=== PATIENT | female | born 1990 | race Hispanic/Latino ===

== ENCOUNTER 2017-12-13 16:44 | Emergency (ER) | payer OTHER ==
[2017-12-13] MEDS ORDERED: Naloxone 0.4 mg/ml Inj (Adult) ONE (16:49)
[2017-12-13] MEDS ORDERED: Naloxone 0.4 mg/ml Inj (Adult) IVP STA ×2 (16:56)
[2017-12-13 17:14] LABS: BASO # 0.1 K/uL (0.0-0.2); BASO % 1.1 % (0.0-2.0); EOS # 0.1 K/uL (0.0-0.7); EOS % 0.7 % (0.0-4.0); HEMOGLOBIN 13.4 g/dL (12.0-16.0); LYMPH # 2.7 K/uL (1.0-4.3); LYMPH % 34.4 % (20.0-40.0); MEAN CORPUSCULAR HEMOGLOBIN 32.7 pg (27.0-31.0); MEAN CORPUSCULAR HGB CONC 34.4 g/dL (33.0-37.0); MEAN PLATELET VOLUME 8.3 fl (7.2-11.7); MONO # 0.4 K/uL (0.0-0.8); MONO % 4.5 % (0.0-10.0); NEUT # 4.7 K/uL (1.8-7.0); NEUT % 59.3 % (50.0-75.0); RBC 4.1 Mil/uL (3.80-5.20)
[2017-12-13 17:17] LABS: VENOUS BLOOD GAS BASE EXCESS -4.3 mmol/L (0.0-2.0); VENOUS BLOOD GAS PCO2 42 mmHg (40-60); VENOUS BLOOD GAS PO2 61 mm/Hg (30-55); VENOUS BLOOD PH 7.32 (7.32-7.43)
[2017-12-13 17:26] LABS: BLOOD UREA NITROGEN 9 mg/dl (7-17); GFR NON-AFRICAN AMERICAN > 60
--- NOTE | 2017-12-13 18:06 | RAD ---
Date of service: 12/13/2017 HISTORY: possible admission COMPARISON: No prior. FINDINGS: LUNGS: Questionable left lower lobe infiltrate versus nipple shadow. PLEURA: No significant pleural effusion identified, no pneumothorax apparent. CARDIOVASCULAR: Normal. OSSEOUS STRUCTURES: No significant abnormalities. VISUALIZED UPPER ABDOMEN: Normal. OTHER FINDINGS: None. IMPRESSION: Questionable left lower lobe infiltrate versus nipple shadow.
[2017-12-13 18:35] LABS: ACETAMINOPHEN < 10.0 ug/ml (10.0-30.0); SALICYLATE < 1.0 mg/dl
--- NOTE | 2017-12-13 18:51 | ED PDOC ---
HPI: Altered Mental Status Time Seen by Provider: 12/13/17 16:55 Chief Complaint (Nursing): Altered Mental Status Chief Complaint (Provider): Altered Mental Status History Per: Patient History/Exam Limitations: Intoxication Onset/Duration Of Symptoms: Hrs Current Symptoms Are (Timing): Still Present Description Of Symptoms: Difficult To Arouse Exacerbating Factor(s): Alcohol Use Additional Complaint(s): 27 year old female brought to the ED by EMS, unconscious, accompanied by friend. As per friend, they were drinking heavily today when patient became unconscious and therefore 911 was called. Friend denies any drug use, trauma, fall, or any known medical conditions. As per EMS, there were no signs of any drugs on the scene. Patient unable to provide any history. Past Medical History Reviewed: Historical Data, Nursing Documentation, Vital Signs Vital Signs: Last Vital Signs Temp 97.2 F L 12/13/17 17:33 Pulse 74 12/13/17 17:19 Resp 12 12/13/17 17:19 BP 101/68 12/13/17 17:19 Pulse Ox 96 12/13/17 17:19 - Medical History PMH: No Chronic Diseases - Family History Family History: States: No Known Family Hx - Allergies Allergies/Adverse Reactions: Allergies Allergy/AdvReac Type Severity Reaction Status Date / Time Unobtainable Allergy Verified 12/13/17 16:54 Review of Systems Review Of Systems: ROS cannot be obtained secondary to pt's inabilty to answer questions. Physical Exam - Reviewed Nursing Documentation Reviewed: Yes Vital Signs Reviewed: Yes - Physical Exam Head Exam: Positive for: ATRAUMATIC (with no abrasions, hematoma, or evidence of trauma), NORMOCEPHALIC Skin: Positive for: Normal Color, Warm, Dry Eye Exam: Positive for: PERRL ENT: Positive for: Other (Airway is patent) Cardiovascular/Chest: Positive for: Regular Rate, Rhythm. Negative for: Murmur Respiratory: Positive for: Normal Breath Sounds. Negative for: Accessory Muscle Use, Rhonchi, Wheezing, Respiratory Distress Pulses-Radial (L): 2+ Pulses-Radial (R): 2+ Gastrointestinal/Abdominal: Positive for: Normal Exam, Soft. Negative for: Tenderness Extremity: Positive for: Other (No signs of track gaspar, rash, or evidence of trauma). Negative for: Calf Tenderness (or swelling) Neurologic/Psych: Positive for: Other (Unconscious, not arousable to sternal rub, not withdrawing to pain, +alcohol on breath) - Laboratory Results Result Diagrams: 12/13/17 17:00 12/13/17 17:00 - ECG O2 Sat by Pulse Oximetry: 96 (RA) Pulse Ox Interpretation: Normal - Radiology X-Ray: Read By Radiologist (chest x-ray) X-Ray Interpretation: Other (Questionable left lower lobe infiltrate versus nipple shadow) Medical Decision Making Medical Decision Making: Time: 1656 Impression: Work-up for acute intoxication of unknown substance Initial Plan: 2x 0.4 mg Narcan given with no improvement in mental status. Labs sent, including drug screen and alcohol level. Chest x-ray and EKG obtained. IV fluids administered. If no improvement in [address] Head. Pending reassessment. 1846 Patient found to have alcohol > 300. On re-evaluation patient is now awake, able to state her name and the month. When asked what happened today, patient cannot form a full sentence, and is requiring assistance to undress and use the bathroom. Will continue to monitor patient for sobriety. U-tox pending. 20:49 Pt now clinically sober, alert/oriented to person, place and time. PE unremarkable. Pt states she was out drinking heavily today but denies pain. Pt is with her mother and will go home with her mother. Return parameters discussed. Scribe Attestation: Documented by Celine Brantley, acting as a scribe for Dr. Madalyn Obrien MD. Provider Scribe Attestation: All medical record entries made by the Scribe were at my direction and personally dictated by me. I have reviewed the chart and agree that the record accurately reflects my personal performance of the history, physical exam, medical decision making, and the department course for this patient. I have also personally directed, reviewed, and agree with the discharge instructions and disposition. Disposition - Clinical Impression Clinical Impression: Acute alcohol intoxication - Patient ED Disposition Is Patient to be Admitted: No - Disposition Referrals: Non [facility] Provider, [Primary Care Provider] - Disposition: Routine/Home Disposition Time: 20:53 Condition: IMPROVED Additional Instructions: Do not consume drugs or alcohol to excess. Discuss rehabilitation/alcohol cessation with your primary doctor. Return to the emergency department if symptoms worsen or if new symptoms develop. Instructions: Alcohol Abuse and Alcoholism (DC) Forms: [employer] (Pashto) Print Language: YEMENI
[2017-12-13 19:10] LABS: SQUAMOUS EPITHIAL < 1 /hpf (0-5); URINE BACTERIA RARE (<OCC); URINE BILIRUBIN NEGATIVE (NEGATIVE); URINE BLOOD SMALL (NEGATIVE); URINE CLARITY CLEAR (Clear); URINE COLOR COLORLESS (YELLOW); URINE GLUCOSE (UA) NEG (Normal); URINE LEUKOCYTE ESTERASE NEG Leu/uL (Negative); URINE PROTEIN NEGATIVE (NEGATIVE); URINE UROBILINOGEN 0.2-1.0 mg/dL (0.2-1.0)
[2017-12-13] MEDS ORDERED: Sodium Chloride 0.9% 1,000 ML IV STA (19:11)
[2017-12-13 21:01] VITALS: BP 100/61; PULSE 72; RESP 18; TEMP 97.9; O2SAT 97
--- NOTE | 2017-12-14 00:09 | CARD ---
APPROVED REPORT Date of service: 12/13/2017 EKG Measurement Heart [id number] <Conclusion> Normal sinus rhythm Normal ECG
== END 2017-12-13 20:54 | disposition home or self-care (01) ==
LOC: H.ER 16:44 → SUPCPDRO 16:44 → H.ER 20:54
DX: F10.129 Alcohol abuse with intoxication, unspecified (principal)
CPT/HCPCS: 71045; 80048; 80320; 80329; 81003; 81025; 82803; 84703; 85025; 86850; 86900; 93005; 96361; 96374; 99285; J2310; J7030